=== PATIENT | male | born 2000 | race Caucasian/White ===

== ENCOUNTER 2024-02-16 11:00 | Emergency (ER) | payer MEDICAID ==
[2024-02-16] MEDS: LORazepam 2 MG/ML SDV IVPUSH ONE (11:15)
[2024-02-16] MEDS: Ondansetron 4 MG/2 ML SDV IVPUSH ONE (11:16)
[2024-02-16 11:59] LABS: HEMATOCRIT 54.3 % (38.3-50.1); HEMOGLOBIN 17.8 g/dL (12.9-17.7); MEAN CORPUSCULAR HEMOGLOBIN 30.4 pg (27.0-33.3); MEAN CORPUSCULAR HGB CONC 32.9 g/dL (28.7-35.3); MEAN CORPUSCULAR VOLUME 92.6 fL (80.8-98.7); MEAN PLATELET VOLUME 8.3 fL (6.7-11.0); PLATELET COUNT,PLT 473 x10(3)uL (117-477); RED BLOOD CELL COUNT 5.86 x10(6)uL (3.90-5.90); RED CELL DISTRIBUTION WIDTH 13.8 % (12.4-15.0); WHITE BLOOD CELL COUNT,WBC 15.4 x10-3/uL (3.2-10.1)
[2024-02-16] MEDS: Sodium Chloride 0.9% 1,000 ML IV SCH (12:01)
[2024-02-16 12:04] LABS: BLOOD UREA NITROGEN,BUN 8 mg/dL (7-18); BUN/CREATININE RATIO 6.7 (9-20); CALCIUM 9.7 mg/dL (8.6-10.2); CARBON DIOXIDE,CO2 22 mmol/L (21-32); CHLORIDE,CL 100 mmol/L (100-110); CREATININE 1.2 mg/dL (0.70-1.30); EST CRCL DRUG DOSING (CG) 93.58 mL/min; ESTIMATED GFR 86 mL/min (>60); GLUCOSE RANDOM 119 mg/dL (80-116); POTASSIUM,K 3.3 mmol/L (3.5-5.3); SODIUM,NA 140 mmol/L (135-145)
[2024-02-16 12:18] LABS: EOSINOPHILS PERCENT MAN 3 % (0-5); LYMPHOCYTES PERCENT MAN 28 % (13-37); MONOCYTES PERCENT MAN 6 % (4-12); SEG NEUTROPHILS PERCENT MAN 63 % (46-82)
[2024-02-16] MEDS: Potassium Chloride 20 MEQ Tab.ER PO ONE (13:24)
== END 2024-02-16 13:32 | disposition home or self-care (01) ==
LOC: FB.ED 11:00
DX: S09.90XA Unspecified injury of head, initial encounter (principal); S01.01XA Laceration without foreign body of scalp, initial encounter; F41.0 Panic disorder [episodic paroxysmal anxiety]; E87.6 Hypokalemia; X58.XXXA Exposure to other specified factors, initial encounter
CPT/HCPCS: 12004; 36415; 70450; 80048; 85025; 96361; 96374; 96375; 99284; A9270; J2060; J2405; J7030